=== PATIENT | female | born 1970 | race Caucasian/White ===

== ENCOUNTER 2016-12-24 13:01 | Inpatient (IN) | payer MEDICARE ==
[~2016-12-24] VITALS: Ht 160 cm; Wt 64.2 kg
[~2016-12-24 13:01] MED LIST: AMPYRA HOMEMEDPO; BISA10SU65 PR; ERTA1VIA IV; FAMO20TA7 PO; HYDR-3138 PO; LEVO112T2 PO; NAPR220C PO; POLY17PO5 PO; PRED10TA PO; PRED50TA PO; SENN1TAB7 PO; SULF1TAB24 PO; TECFIDERA HOMEMEDPO; [UNRECOGNIZED DRUG - REMARK]
[2016-12-24] MEDS ORDERED: SODIUM CHLORIDE 0.9% 1,000 ML IV ONE (13:42)
[2016-12-24] MEDS ORDERED: SODIUM CHLORIDE FLUSH 10ML SYR IVF ONE (14:00)
[2016-12-24 14:46] LABS: HEMOGLOBIN 13.4 g/dL (11.7-16.4)
[2016-12-24 14:51] LABS: BLOOD UREA NITROGEN 17 mg/dL (7-18)
[2016-12-24 15:34] LABS: DIFF TOTAL CELLS COUNTED 100 CELL DIFF
[2016-12-24 15:35] LABS: VERIFY COUNTS? YES
[2016-12-24 16:05] LABS: PATH.CAST-FLAG NOT PRESENT; SPERM-FLAG NOT PRESENT; SRC-FLAG NOT PRESENT; XTAL-FLAG NOT PRESENT; YLC-FLAG NOT PRESENT
[2016-12-24] MEDS ORDERED: LEVOFLOXACIN/PMX 750MG/150ML 150 ML ONE (16:24)
[2016-12-24] MEDS ORDERED: LEVOFLOXACIN/PMX 750MG/150ML 150 ML IVPB ONE (16:30)
[2016-12-24] MEDS ORDERED: IBUPROFEN 200 MG TABLET ONE (17:10)
[2016-12-24] MEDS ORDERED: IBUPROFEN 200 MG TABLET PO ONE (17:30)
[2016-12-24] MEDS ORDERED: SODIUM CHLORIDE 0.9% 1,000ML IVBOLUS ONE ×2 (17:30→19:00)
[2016-12-24] MEDS ORDERED: ACETAMINOPHEN 500 MG TABLET ONE (18:26)
[2016-12-24] MEDS ORDERED: ONDANSETRON 2MG/ML, 2ML ONE (18:43)
[2016-12-24] MEDS ORDERED: MORPHINE SULFATE 4 MG/ML, 1ML ONE (18:43)
[2016-12-24] MEDS ORDERED: ONDANSETRON 2MG/ML, 2ML IVPush ONE (19:00)
[2016-12-24] MEDS ORDERED: ACETAMINOPHEN 500 MG TABLET PO ONE (19:00)
[2016-12-24] MEDS ORDERED: MORPHINE SULFATE 4 MG/ML, 1ML IVPush PRN (19:00)
[2016-12-24] MEDS ORDERED: SODIUM CHLORIDE FLUSH 10ML SYR IVF PRN (19:30)
[2016-12-24] MEDS ORDERED: POLYETHYLENE GLYCOL 17 GM PACKET PO PRN (19:30)
[2016-12-24] MEDS ORDERED: BISACODYL 10 MG SUPP PR PRN (19:30)
[2016-12-24] MEDS ORDERED: MEROPENEM 1 GM in SODIUM CHLORIDE 0.9% 100 ML IV ONE (19:30)
[2016-12-24] MEDS: SODIUM CHLORIDE 0.9% 1,000 ML IV SCH (21:17)
[2016-12-24] MEDS ORDERED: OMNIPAQUE 350 MG/ML, 150 ML BOTTLE ONE (22:58)
[2016-12-24 23:43] VITALS: BP 107/57
[2016-12-25 00:45] VITALS: BP 100/65
[2016-12-25] MEDS: ACETAMINOPHEN 325 MG TABLET PO PRN ×3 (01:15→12:11)
[2016-12-25] MEDS: ENOXAPARIN 40 MG/0.4 ML SQ SCH ×2 (01:16→21:16)
[2016-12-25] MEDS: SENNA/DOCUSATE TABLET PO SCH ×3 (01:16→21:16)
[2016-12-25] MEDS: SODIUM CHLORIDE 0.9% 1,000 ML IV SCH ×2 (01:17→08:51)
[2016-12-25 06:17] LABS: HEMOGLOBIN 11.2 g/dL (11.7-16.4)
[2016-12-25 06:27] LABS: BLOOD UREA NITROGEN 8 mg/dL (7-18)
[2016-12-25] MEDS: MEROPENEM 1 GM in SODIUM CHLORIDE 0.9% 100 ML IV SCH ×3 (06:28→21:16)
[2016-12-25] MEDS: LEVOTHYROXINE 112 MCG TABLET PO SCH (06:28)
[2016-12-25 06:29] LABS: ASPARTATE AMINO TRANSFERASE 16 U/L (15-37)
[2016-12-25 06:56] VITALS: BP 90/57
[2016-12-25] MEDS: HYDROcodone/APAP 5/325 TABLET PO PRN ×2 (09:05→13:59)
[2016-12-25] MEDS: NS + 20MEQ KCL 1,000 ML IV SCH ×2 (11:14→21:16)
[2016-12-25 12:30] VITALS: BP 97/59
[2016-12-25] MEDS: MORPHINE SULFATE 4 MG/ML, 1ML IVPush PRN ×2 (17:13→21:29)
[2016-12-25] MEDS ORDERED: methylPREDNISolone SOD SUCC 125 MG/2 ML IVPush ONE (17:30)
[2016-12-25 19:46] VITALS: BP 116/73
[2016-12-26 01:58] VITALS: BP 104/68
[2016-12-26] MEDS: MORPHINE SULFATE 4 MG/ML, 1ML IVPush PRN (02:16)
[2016-12-26] MEDS: MEROPENEM 1 GM in SODIUM CHLORIDE 0.9% 100 ML IV SCH ×3 (04:22→20:17)
[2016-12-26] MEDS: LEVOTHYROXINE 112 MCG TABLET PO SCH (05:19)
[2016-12-26 06:28] LABS: HEMOGLOBIN 11.9 g/dL (11.7-16.4)
[2016-12-26 06:50] LABS: BLOOD UREA NITROGEN 8 mg/dL (7-18)
[2016-12-26] MEDS: HYDROcodone/APAP 5/325 TABLET PO PRN ×2 (08:31→16:42)
[2016-12-26] MEDS: SENNA/DOCUSATE TABLET PO SCH ×2 (08:31→20:17)
[2016-12-26 08:39] VITALS: BP 116/72
[2016-12-26 13:54] VITALS: BP 122/76
[2016-12-26 19:18] VITALS: BP 104/66
[2016-12-26] MEDS: PICC FLUSH PROTOCOL XX SCH (20:18)
[2016-12-26] MEDS: ENOXAPARIN 40 MG/0.4 ML SQ SCH (20:18)
[2016-12-27 01:12] VITALS: BP 103/68
[2016-12-27] MEDS: MEROPENEM 1 GM in SODIUM CHLORIDE 0.9% 100 ML IV SCH ×3 (04:14→20:32)
[2016-12-27] MEDS: HYDROcodone/APAP 5/325 TABLET PO PRN ×4 (04:20→20:30)
[2016-12-27] MEDS: LEVOTHYROXINE 112 MCG TABLET PO SCH (05:17)
[2016-12-27 07:44] VITALS: BP 106/68
[2016-12-27] MEDS: SENNA/DOCUSATE TABLET PO SCH ×2 (10:07→20:30)
[2016-12-27] MEDS: PICC FLUSH PROTOCOL XX SCH ×2 (10:08→20:32)
[2016-12-27] MEDS: ONDANSETRON 2MG/ML, 2ML IVP PRN (10:15)
[2016-12-27 14:15] VITALS: BP 109/70
[2016-12-27 18:57] VITALS: BP 107/70
[2016-12-27] MEDS: ENOXAPARIN 40 MG/0.4 ML SQ SCH (20:36)
[2016-12-28 01:21] VITALS: BP 106/68
[2016-12-28] MEDS: MEROPENEM 1 GM in SODIUM CHLORIDE 0.9% 100 ML IV SCH (04:51)
[2016-12-28] MEDS: LEVOTHYROXINE 112 MCG TABLET PO SCH (04:52)
[2016-12-28] MEDS: HYDROcodone/APAP 5/325 TABLET PO PRN ×2 (04:52→21:47)
[2016-12-28 06:52] VITALS: BP 105/67
[2016-12-28] MEDS: SENNA/DOCUSATE TABLET PO SCH ×2 (08:09→21:47)
[2016-12-28] MEDS: PICC FLUSH PROTOCOL XX SCH ×2 (08:09→21:47)
[2016-12-28] MEDS: ONDANSETRON 2MG/ML, 2ML IVP PRN (10:57)
[2016-12-28] MEDS: ERTAPENEM 1 GM in SODIUM CHLORIDE 0.9% 50 ML IV SCH (10:57)
[2016-12-28 13:08] VITALS: BP 129/87
[2016-12-28 19:45] VITALS: BP 122/82
[2016-12-28] MEDS: ENOXAPARIN 40 MG/0.4 ML SQ SCH (21:47)
[2016-12-29 02:41] VITALS: BP 145/75
[2016-12-29] MEDS: HYDROcodone/APAP 5/325 TABLET PO PRN ×2 (05:52→19:31)
[2016-12-29] MEDS: LEVOTHYROXINE 112 MCG TABLET PO SCH (05:53)
[2016-12-29 07:08] VITALS: BP 120/79
[2016-12-29] MEDS: PICC FLUSH PROTOCOL XX SCH ×2 (09:00→21:00)
[2016-12-29] MEDS: SENNA/DOCUSATE TABLET PO SCH ×2 (10:20→21:23)
[2016-12-29] MEDS: ERTAPENEM 1 GM in SODIUM CHLORIDE 0.9% 50 ML IV SCH (13:20)
[2016-12-29] MEDS: ONDANSETRON 2MG/ML, 2ML IVP PRN (13:32)
[2016-12-29 14:42] VITALS: BP 118/76
[2016-12-29 18:50] VITALS: BP 102/67
[2016-12-29] MEDS: ENOXAPARIN 40 MG/0.4 ML SQ SCH (21:24)
[2016-12-30 01:28] VITALS: BP 103/67
[2016-12-30] MEDS: LEVOTHYROXINE 112 MCG TABLET PO SCH (04:32)
[2016-12-30 08:27] VITALS: BP 106/71
[2016-12-30] MEDS: HYDROcodone/APAP 5/325 TABLET PO PRN (08:55)
[2016-12-30] MEDS: SENNA/DOCUSATE TABLET PO SCH ×2 (08:55→20:52)
[2016-12-30] MEDS: ONDANSETRON 2MG/ML, 2ML IVP PRN (08:59)
[2016-12-30] MEDS: PICC FLUSH PROTOCOL XX SCH ×2 (09:00→20:53)
[2016-12-30] MEDS: ERTAPENEM 1 GM in SODIUM CHLORIDE 0.9% 50 ML IV SCH (11:57)
[2016-12-30] MEDS: PHENAZOPYRIDINE 200 MG TABLET PO SCH ×2 (16:00→20:52)
[2016-12-30 16:32] VITALS: BP 121/82
[2016-12-30 19:51] VITALS: BP 111/75
[2016-12-30] MEDS: ENOXAPARIN 40 MG/0.4 ML SQ SCH (20:53)
[2016-12-31 02:28] VITALS: BP 111/74
[2016-12-31] MEDS: LEVOTHYROXINE 112 MCG TABLET PO SCH (04:32)
[2016-12-31] MEDS: HYDROcodone/APAP 5/325 TABLET PO PRN ×3 (04:33→21:07)
[2016-12-31 04:49] LABS: HEMOGLOBIN 11.8 g/dL (11.7-16.4)
[2016-12-31 05:04] LABS: ASPARTATE AMINO TRANSFERASE 40 U/L (15-37); BLOOD UREA NITROGEN 9 mg/dL (7-18); C-REACTIVE PROTEIN, QUANT 0.52 mg/dL (0.02-0.49)
[2016-12-31 07:44] VITALS: BP 107/73
[2016-12-31] MEDS: SENNA/DOCUSATE TABLET PO SCH ×2 (10:34→21:07)
[2016-12-31] MEDS: PHENAZOPYRIDINE 200 MG TABLET PO SCH ×3 (10:34→21:07)
[2016-12-31] MEDS: PICC FLUSH PROTOCOL XX SCH ×2 (10:39→21:00)
[2016-12-31] MEDS: ERTAPENEM 1 GM in SODIUM CHLORIDE 0.9% 50 ML IV SCH (10:49)
[2016-12-31 16:09] VITALS: BP 116/71
[2016-12-31] MEDS: ENOXAPARIN 40 MG/0.4 ML SQ SCH (19:30)
[2016-12-31 20:04] VITALS: BP 117/75
[2017-01-01 02:26] VITALS: BP 112/75
[2017-01-01] MEDS: LEVOTHYROXINE 112 MCG TABLET PO SCH (04:58)
[2017-01-01 08:03] VITALS: BP 112/70
[2017-01-01] MEDS: PHENAZOPYRIDINE 200 MG TABLET PO SCH (09:43)
[2017-01-01] MEDS: SENNA/DOCUSATE TABLET PO SCH (09:43)
[2017-01-01] MEDS: PICC FLUSH PROTOCOL XX SCH (09:44)
[2017-01-01] MEDS: ERTAPENEM 1 GM in SODIUM CHLORIDE 0.9% 50 ML IV SCH (12:39)
[2017-01-01] MEDS: HYDROcodone/APAP 5/325 TABLET PO PRN (12:39)
[2017-01-01 13:56] VITALS: BP 136/80
== END 2017-01-01 15:43 | DRG 872 ==
LOC: ED 16:54 → SUATTDRO 18:24 → EDIP 19:04 → 5SO 23:34 → 3NE 01-01 11:50
PROVIDERS: ADMIT Internal Medicine; ATTEND Family Medicine
PROC: 0T9B70Z Drainage of Bladder with Drainage Device, Via Natural or Artificial Opening (ICD-10-PCS; 2016-12-24)
PROC: 02HV33Z Insertion of Infusion Device into Superior Vena Cava, Percutaneous Approach (ICD-10-PCS; principal; 2016-12-26)
PROC: B548ZZA Ultrasonography of Superior Vena Cava, Guidance (ICD-10-PCS; 2016-12-26)
DX: A41.9 Sepsis, unspecified organism (principal); K59.2 Neurogenic bowel, not elsewhere classified; N12 Tubulo-interstitial nephritis, not specified as acute or chronic; N31.9 Neuromuscular dysfunction of bladder, unspecified; B96.20 Unspecified Escherichia coli [E. coli] as the cause of diseases classified elsewhere; G35 Multiple sclerosis; E03.9 Hypothyroidism, unspecified; Z16.12 Extended spectrum beta lactamase (ESBL) resistance; Z79.899 Other long term (current) drug therapy; Z80.0 Family history of malignant neoplasm of digestive organs; Z87.440 Personal history of urinary (tract) infections; Z91.19 Patient's noncompliance with other medical treatment and regimen; Z90.49 Acquired absence of other specified parts of digestive tract; Z90.89 Acquired absence of other organs; Z90.710 Acquired absence of both cervix and uterus
CPT/HCPCS: 36415; 36569; 70450; 71010; 74178; 76937; 77001; 80048; 80053; 81001; 82040; 83605; 83735; 84145; 85025; 85651; 86140; 87040; 87077; 87086; 87186; 93005; 96361; 96365; 96366; 96367; 96375; J1335; J1650; J1956; J2185; J2405; J3480; Q9967; C1751; J2930; J7030

== ENCOUNTER 2017-02-19 13:32 | Inpatient (IN) | payer MEDICARE ==
[~2017-02-19] VITALS: Ht 160 cm; Wt 68.7 kg
[2017-02-19] MEDS ORDERED: SODIUM CHLORIDE 0.9% 1,000 ML IV ONE ×2 (13:47→14:22)
[2017-02-19] MEDS ORDERED: ONDANSETRON 2MG/ML, 2ML IVPush ONE ×2 (14:00→14:30)
[2017-02-19] MEDS ORDERED: ACETAMINOPHEN 325 MG TABLET PO ONE ×2 (14:00→14:30)
[2017-02-19] MEDS ORDERED: SODIUM CHLORIDE FLUSH 10ML SYR IVF ONE (14:00)
[2017-02-19] MEDS ORDERED: SODIUM CHLORIDE 0.9% 1,000ML IVBOLUS ONE ×3 (14:00→15:00)
[2017-02-19] MEDS ORDERED: ACETAMINOPHEN 325 MG TABLET ONE ×2 (14:02→18:25)
[2017-02-19] MEDS ORDERED: ONDANSETRON 2MG/ML, 2ML ONE (14:03)
[2017-02-19 14:26] LABS: ASPARTATE AMINO TRANSFERASE 36 U/L (15-37); BLOOD UREA NITROGEN 16 mg/dL (7-18)
[2017-02-19] MEDS ORDERED: FAMOTIDINE 20 MG/2 ML IVPush ONE (14:30)
[2017-02-19] MEDS ORDERED: FAMOTIDINE 20 MG/2 ML ONE (15:08)
[2017-02-19] MEDS ORDERED: LEVOFLOXACIN/PMX 750MG/150ML 150 ML IVPB ONE (16:30)
[2017-02-19] MEDS ORDERED: IBUPROFEN 200 MG TABLET PO ONE (16:30)
[2017-02-19] MEDS ORDERED: VANCOMYCIN PER PHARMACY MC ONE (16:30)
[2017-02-19] MEDS ORDERED: LEVOFLOXACIN/PMX 750MG/150ML 150 ML ONE (16:46)
[2017-02-19] MEDS ORDERED: VANCOMYCIN 1,400 MG in SODIUM CHLORIDE 0.9% 250 ML IV ONE (17:00)
[2017-02-19] MEDS ORDERED: LORazepam 2 MG/ML, 1ML IVPush ONE (17:00)
[2017-02-19] MEDS ORDERED: METOPROLOL 1 MG/ML, 5ML ONE (17:01)
[2017-02-19] MEDS ORDERED: IBUPROFEN 200 MG TABLET ONE (17:20)
[2017-02-19] MEDS ORDERED: LORazepam 2 MG/ML, 1ML ONE (17:20)
[2017-02-19] MEDS ORDERED: ZOLPIDEM 5MG TABLET PO PRN (17:30)
[2017-02-19] MEDS ORDERED: ONDANSETRON 2MG/ML, 2ML IVPush PRN (17:30)
[2017-02-19] MEDS ORDERED: morphine SULFATE 10 MG/ML, 1ML IVPush PRN (17:30)
[2017-02-19] MEDS ORDERED: POLYETHYLENE GLYCOL 17 GM PACKET PO PRN (17:30)
[2017-02-19] MEDS ORDERED: METOPROLOL 1 MG/ML, 5ML IVPush ONE (17:30)
[2017-02-19] MEDS ORDERED: LORazepam 2 MG/ML, 1ML IVPush PRN (17:30)
[2017-02-19] MEDS ORDERED: DIAZEPAM 5 MG/ML, 2ML IV PRN (17:30)
[2017-02-19] MEDS ORDERED: BISACODYL 10 MG SUPP PR PRN (17:30)
[2017-02-19] MEDS ORDERED: IBUPROFEN 600 MG TABLET PO PRN (17:30)
[2017-02-19] MEDS ORDERED: ACETAMINOPHEN 325 MG TABLET PO PRN (17:30)
[2017-02-19] MEDS ORDERED: ENOXAPARIN 40 MG/0.4 ML SQ SCH (17:30)
[2017-02-19] MEDS: SODIUM CHLORIDE 0.9% 1,000 ML IV SCH (17:49)
[2017-02-19 20:00] VITALS: BP 101/60
[2017-02-19] MEDS: MEROPENEM 1 GM in SODIUM CHLORIDE 0.9% 50 ML IV SCH (22:42)
[2017-02-20] MEDS: SODIUM CHLORIDE 0.9% 1,000 ML IV SCH ×2 (00:33→04:24)
[2017-02-20 02:53] VITALS: BP 87/47
[2017-02-20 03:06] VITALS: BP 103/48
[2017-02-20] MEDS ORDERED: SODIUM CHLORIDE 0.9%, 500ML IVBOLUS ONE (03:30)
[2017-02-20 04:42] VITALS: BP 90/57
[2017-02-20] MEDS: LEVOTHYROXINE 112 MCG TABLET PO SCH (05:50)
[2017-02-20 06:07] LABS: BLOOD UREA NITROGEN 11 mg/dL (7-18)
[2017-02-20 07:40] VITALS: BP 92/59
[2017-02-20] MEDS: MEROPENEM 1 GM in SODIUM CHLORIDE 0.9% 50 ML IV SCH ×2 (08:32→17:31)
[2017-02-20] MEDS ORDERED: OMNIPAQUE 350 MG/ML, 100ML BOTTLE ONE (10:05)
[2017-02-20 10:32] LABS: HIT LOT CART23835/KIT23844
[2017-02-20 11:33] LABS: PROTIME 12.4 Seconds (9.6-11.5)
[2017-02-20] MEDS: POTASSIUM CHLORIDE 20 MEQ in SODIUM CHLORIDE 0.45% 1,000 ML IV SCH ×2 (11:56→17:31)
[2017-02-20 12:22] LABS: HIT OBC PASS; HIT RESULT NEGATIVE (NEGATIVE)
[2017-02-20 13:59] VITALS: BP 119/76
[2017-02-20] MEDS ORDERED: POTASSIUM CHLORIDE 20 MEQ in SODIUM CHLORIDE 0.9% 1,000 ML IV SCH (17:08)
[2017-02-20 20:00] VITALS: BP 122/74
[2017-02-21] MEDS: MEROPENEM 1 GM in SODIUM CHLORIDE 0.9% 50 ML IV SCH ×3 (00:21→16:40)
[2017-02-21] MEDS: POTASSIUM CHLORIDE 20 MEQ in SODIUM CHLORIDE 0.45% 1,000 ML IV SCH ×4 (00:21→22:14)
[2017-02-21 03:41] VITALS: BP 94/59
[2017-02-21] MEDS: LEVOTHYROXINE 112 MCG TABLET PO SCH (04:59)
[2017-02-21 06:35] LABS: BLOOD UREA NITROGEN 5 mg/dL (7-18)
[2017-02-21 07:59] VITALS: BP 101/67
[2017-02-21] MEDS ORDERED: POTASSIUM CHLORIDE 20 MEQ TAB.ER.PRT PO ONE (11:00)
[2017-02-21 13:59] VITALS: BP 111/69
[2017-02-21] MEDS: DOCUSATE 100 MG CAPSULE PO PRN (16:36)
[2017-02-21 20:00] VITALS: BP 132/81
[2017-02-22] MEDS: MEROPENEM 1 GM in SODIUM CHLORIDE 0.9% 50 ML IV SCH ×3 (00:15→16:16)
[2017-02-22 02:00] VITALS: BP 100/68
[2017-02-22] MEDS: POTASSIUM CHLORIDE 20 MEQ in SODIUM CHLORIDE 0.45% 1,000 ML IV SCH ×2 (02:01→08:26)
[2017-02-22 05:37] LABS: BLOOD UREA NITROGEN 5 mg/dL (7-18)
[2017-02-22] MEDS: LEVOTHYROXINE 112 MCG TABLET PO SCH (05:51)
[2017-02-22 07:22] VITALS: BP 115/67
[2017-02-22] MEDS: DOCUSATE 100 MG CAPSULE PO PRN (08:26)
[2017-02-22 16:10] VITALS: BP 116/73
[2017-02-22 20:00] VITALS: BP 124/72
[2017-02-23] MEDS: MEROPENEM 1 GM in SODIUM CHLORIDE 0.9% 50 ML IV SCH ×3 (00:18→18:21)
[2017-02-23 02:00] VITALS: BP 104/64
[2017-02-23 05:43] LABS: BLOOD UREA NITROGEN 8 mg/dL (7-18)
[2017-02-23] MEDS: LEVOTHYROXINE 112 MCG TABLET PO SCH (05:53)
[2017-02-23 08:48] VITALS: BP 122/81
[2017-02-23 12:22] VITALS: BP 121/79
[2017-02-23 20:00] VITALS: BP 128/76
[2017-02-24 02:00] VITALS: BP 117/72
[2017-02-24] MEDS: MEROPENEM 1 GM in SODIUM CHLORIDE 0.9% 50 ML IV SCH ×2 (03:49→11:00)
[2017-02-24] MEDS: LEVOTHYROXINE 112 MCG TABLET PO SCH (05:44)
[2017-02-24 07:25] VITALS: BP 112/72
[2017-02-24] MEDS: CHOLECALCIFEROL 400 UNITS TABLET PO SCH (08:41)
[2017-02-24] MEDS ORDERED: CEFTRIAXONE 2 GM in SODIUM CHLORIDE 0.9% 50 ML IV SCH (12:00)
[2017-02-24 12:10] VITALS: BP 113/73
[2017-02-24 19:10] VITALS: BP 112/71
[2017-02-25 00:42] VITALS: BP 112/70
[2017-02-25 05:06] LABS: SRA, LOW DOSE HEPARIN 2 % (0-20)
[2017-02-25] MEDS: LEVOTHYROXINE 112 MCG TABLET PO SCH (05:35)
[2017-02-25 08:24] VITALS: BP 107/71
[2017-02-25] MEDS: CHOLECALCIFEROL 400 UNITS TABLET PO SCH (09:30)
[2017-02-25] MEDS ORDERED: CEFTRIAXONE PMX 2GM/50ML 50 ML IV SCH (12:00)
[2017-02-25 14:00] VITALS: BP 107/71
[2017-02-25 16:56] VITALS: BP 107/71
== END 2017-02-25 16:45 | disposition home or self-care (01) | DRG 872 ==
LOC: ED 16:30 → EDIP 16:31 → SUATTDRO 16:39 → ED 16:43 → 4WST 18:58
PROVIDERS: ADMIT Hospitalist; ATTEND Hospitalist
PROC: 02HV33Z Insertion of Infusion Device into Superior Vena Cava, Percutaneous Approach (ICD-10-PCS; principal; 2017-02-23)
PROC: B5181ZA Fluoroscopy of Superior Vena Cava using Low Osmolar Contrast, Guidance (ICD-10-PCS; 2017-02-23)
DX: A41.9 Sepsis, unspecified organism (principal); N12 Tubulo-interstitial nephritis, not specified as acute or chronic; E03.9 Hypothyroidism, unspecified; B96.20 Unspecified Escherichia coli [E. coli] as the cause of diseases classified elsewhere; Z16.12 Extended spectrum beta lactamase (ESBL) resistance
CPT/HCPCS: 36415; 36569; 71010; 74177; 76937; 77001; 80048; 80053; 81001; 82306; 82542; 83605; 83735; 84145; 84443; 85025; 85049; 85379; 85384; 85610; 85730; 86022; 87040; 87077; 87086; 87186; 93005; 96361; 96365; 96375; J0696; J1650; J1956; J2185; J2405; J3370; J3480; Q9967; C1751; J2060; J7030; J7040; J7050; S0028

== ENCOUNTER 2017-10-07 19:44 | Emergency (ER) | payer MEDICARE ==
[~2017-10-07] VITALS: Ht 157.5 cm; Wt 62.0 kg
[~2017-10-07 19:44] MED LIST changes: -HYDR-3138 PO; +HYDR-3237 PO
[2017-10-07] MEDS ORDERED: ACETAMINOPHEN 325 MG TABLET ONE (20:06)
[2017-10-07 20:30] LABS: HEMATOCRIT 37.1 % (34.6-47.8); HEMOGLOBIN 12.9 g/dL (11.7-16.4); WHITE BLOOD COUNT 10.1 x10^3/uL (3.4-10)
[2017-10-07] MEDS ORDERED: SODIUM CHLORIDE FLUSH 10ML SYR IVF ONE (20:30)
[2017-10-07] MEDS ORDERED: SODIUM CHLORIDE 0.9% 1,000ML IVBOLUS ONE (20:30)
[2017-10-07] MEDS ORDERED: ACETAMINOPHEN 325 MG TABLET PO ONE (20:30)
[2017-10-07 20:32] LABS: RAPID INFLUENZA A Negative (Negative); RAPID INFLUENZA B Negative (Negative)
[2017-10-07 20:40] LABS: ASPARTATE AMINO TRANSFERASE 22 U/L (15-37); BLOOD UREA NITROGEN 8 mg/dL (7-18)
[2017-10-07 21:41] VITALS: BP 126/70
[2017-10-07 21:45] LABS: PATH.CAST-FLAG NOT PRESENT; SPERM-FLAG NOT PRESENT; SRC-FLAG NOT PRESENT; XTAL-FLAG NOT PRESENT; YLC-FLAG NOT PRESENT
[2017-10-07] MEDS ORDERED: IBUPROFEN 200 MG TABLET PO ONE (22:00)
[2017-10-07] MEDS ORDERED: IBUPROFEN 200 MG TABLET ONE (22:02)
== END 2017-10-07 22:15 | disposition home or self-care (01) ==
LOC: ED 22:09
DX: J00 Acute nasopharyngitis [common cold] (principal); G35 Multiple sclerosis
CPT/HCPCS: 36415; 71010; 80053; 81001; 83605; 84145; 85025; 87040; 87400; 93005; 96360; 96361; 99285; J7030

== ENCOUNTER 2019-11-07 22:56 | Emergency (ER) | payer MEDICARE, OTHER ==
[~2019-11-07] VITALS: Ht 160 cm; Wt 73.0 kg
[~2019-11-07 22:56] MED LIST changes: -NAPR220C PO; +NAPR220C62 PO; +SENN-177 PO; -SENN1TAB7 PO
[2019-11-07 23:38] LABS: BASOPHILS # (AUTO) 0.03 x10^3/uL (0-0.1); BASOPHILS % (AUTO) 0 % (0-1); EOSINOPHILS # (AUTO) 0.08 x10^3/uL (0-0.4); EOSINOPHILS % (AUTO) 1 % (1-7); LYMPHOCYTES # (AUTO) 2.46 x10^3/uL (1-3.4); LYMPHOCYTES % (AUTO) 19 % (22-44); MD NO; MEAN CORPUSCULAR HEMOGLOBIN 31.5 pg (27.0-34.8); MEAN CORPUSCULAR HGB CONC 33.6 g/dL (32.4-35.8); MEAN CORPUSCULAR VOLUME 93.7 fL (80-100); MEAN PLATELET VOLUME 10.5 fL (7.4-10.4); MONOCYTES # (AUTO) 1.12 x10^3/uL (0.2-0.8); MONOCYTES % (AUTO) 9 % (2-9); NEUTROPHILS # (AUTO) 9.18 x10^3/uL (1.8-6.8); NEUTROPHILS % (AUTO) 71 % (42-75); PLATELET COUNT 201 x10^3/uL (130-400); RED BLOOD COUNT 4.03 x10^6/uL (3.82-5.3); RED CELL DISTRIBUTION WIDTH 14.3 % (9.6-15.2)
[2019-11-07 23:47] LABS: CHLORIDE 105 mmol/L (98-107)
--- NOTE | 2019-11-07 23:47 | NUR ---
pt straight cath'ed for urine and tolerated procedure well.
--- NOTE | 2019-11-07 23:48 | NUR ---
pt family states she had a fever of 104 today and she took motrin at 2100 this evening.
[2019-11-07 23:51] LABS: ALANINE AMINOTRANSFERASE 73 U/L (12-78); ALBUMIN 4.4 g/dL (3.4-5.0); ANION GAP 10 mmol/L (5-15); CALCIUM 9.1 mg/dL (8.5-10.1); CREATININE 0.59 mg/dL (0.55-1.02)
--- NOTE | 2019-11-07 23:52 | NUR ---
blood cultures drawn x2
[2019-11-07 23:53] LABS: MICROSCOPIC AUTO
[2019-11-07 23:54] LABS: ALKALINE PHOSPHATASE 106 U/L (45-117); BILIRUBIN,TOTAL 0.4 mg/dL (0.2-1.0); TOTAL PROTEIN 8.1 g/dL (6.4-8.2)
[2019-11-07 23:55] LABS: TROPONIN I < 0.015 ng/mL (0.000-0.045)
[2019-11-08 00:04] LABS: CULTURE INDICATED? YES
[2019-11-08] MEDS ORDERED: CIPROFLOXACIN 500 MG TABLET PO ONE (01:00)
[2019-11-08] MEDS ORDERED: CIPROFLOXACIN 500 MG TABLET ONE (01:02)
[2019-11-08 01:06] VITALS: BP 115/59
== END 2019-11-08 01:20 | disposition home or self-care (01) ==
LOC: ED 23:52
DX: N30.01 Acute cystitis with hematuria (principal); M79.10 Myalgia, unspecified site; R50.81 Fever presenting with conditions classified elsewhere; E03.9 Hypothyroidism, unspecified; Z98.890 Other specified postprocedural states
CPT/HCPCS: 36415; 71045; 80053; 81001; 83605; 84145; 84484; 85025; 87040; 87077; 87086; 87186; 93005; 99283; 99284

== ENCOUNTER 2020-07-31 09:57 | Emergency (ER) | payer OTHER ==
[~2020-07-31] VITALS: Ht 160 cm; Wt 76.4 kg
[~2020-07-31 09:57] MED LIST changes: +CEFD300C37 PO; +DALF10TA PO; +DIME240C PO; +LEVO112T4 PO; +PHEN20SP MM; +SENN-193 PO
--- NOTE | 2020-07-31 10:50 | NUR ---
ATTEMPTED IV PLACEMENT X2 WITHOUT SUCCESS. WILL FIND ANOTHER STAFF MEMBER TO ASSIST. BLOOD CULTURES AND LABS DRAWN BY LAB. PT PLACED ON VITALS MONITORS.
[2020-07-31] MEDS ORDERED: SODIUM CHLORIDE 0.9% 1,000 ML IV ONE (11:00)
[2020-07-31] MEDS ORDERED: SODIUM CHLORIDE FLUSH 10ML SYR IVF ONE (11:00)
[2020-07-31 11:02] LABS: BASOPHILS % (AUTO) 0 % (0-1); EOSINOPHILS % (AUTO) 1 % (1-7); LYMPHOCYTES % (AUTO) 21 % (22-44); MEAN CORPUSCULAR HEMOGLOBIN 30.3 pg (27.0-34.8); MEAN CORPUSCULAR HGB CONC 32.8 g/dL (32.4-35.8); MEAN PLATELET VOLUME 10.4 fL (7.4-10.4); MONOCYTES % (AUTO) 8 % (2-9); NEUTROPHILS % (AUTO) 71 % (42-75); PLATELET COUNT 176 x10^3/uL (130-400); RED BLOOD COUNT 4.44 x10^6/uL (3.82-5.3); RED CELL DISTRIBUTION WIDTH 13.8 % (9.6-15.2)
[2020-07-31 11:07] LABS: MD NO
[2020-07-31 11:12] LABS: ALBUMIN 4.5 g/dL (3.4-5.0); ANION GAP 7 mmol/L (5-15); CALCIUM 9.4 mg/dL (8.5-10.1); CHLORIDE 109 mmol/L (98-107)
[2020-07-31 11:14] LABS: CREATININE 0.51 mg/dL (0.55-1.02)
--- NOTE | 2020-07-31 11:16 | NUR ---
IV STARTED, ORDERED FLUIDS INFUSING. STRAIGHT CATH DONE, PT TOLERATED WELL. URINE WALKED TO LAB.
[2020-07-31 11:22] LABS: MICROSCOPIC AUTO
[2020-07-31] MEDS ORDERED: CEFTRIAXONE PMX 1GM/50ML 50 ML IVPB ONE (12:00)
[2020-07-31] MEDS ORDERED: CEFTRIAXONE PMX 1GM/50ML 50 ML ONE (12:07)
[2020-07-31 12:55] VITALS: BP 117/81
== END 2020-07-31 12:58 | disposition home or self-care (01) ==
LOC: ED 10:55
DX: N30.00 Acute cystitis without hematuria (principal); R42 Dizziness and giddiness; Z90.89 Acquired absence of other organs; R00.0 Tachycardia, unspecified
CPT/HCPCS: 36415; 51701; 80048; 81001; 82040; 83605; 85025; 87040; 87086; 93005; 96365; 99284; J0696; J7030; P9612

== ENCOUNTER 2020-08-23 18:49 | Inpatient (IN) | payer OTHER ==
[~2020-08-23] VITALS: Ht 160 cm; Wt 82.9 kg
[2020-08-23 19:23] LABS: MEAN CORPUSCULAR HEMOGLOBIN 30.4 pg (27.0-34.8); MEAN CORPUSCULAR HGB CONC 32.7 g/dL (32.4-35.8); MEAN PLATELET VOLUME 10.4 fL (7.4-10.4); PLATELET COUNT 285 x10^3/uL (130-400); RED BLOOD COUNT 4.36 x10^6/uL (3.82-5.3); RED CELL DISTRIBUTION WIDTH 14.4 % (9.6-15.2)
[2020-08-23 19:31] LABS: ANION GAP 4 mmol/L (5-15); CALCIUM 9.8 mg/dL (8.5-10.1); CHLORIDE 107 mmol/L (98-107); CREATININE 0.53 mg/dL (0.55-1.02)
[2020-08-23 19:49] LABS: MD YES
[2020-08-23 21:01] LABS: BAND#(MANUAL) 0.28 x10^3/uL; BANDS%(MANUAL) 2 % (0-7); LYMPH#(MANUAL) 4.69 x10^3/uL (1-3.4); LYMPHS% (MANUAL) 33 % (22-44); MONOS#(MANUAL) 1.56 x10^3/uL (0.3-2.7); MONOS% (MANUAL) 11 % (2-9); MYELOCYTES# (MANUAL) 0.14 x10^3/uL (0-0); MYELOCYTES% (MANUAL) 1 % (0-0); REACTIVE LYMPHS # (MANUAL) 0.43 x10^3/uL (0-0); REACTIVE LYMPHS % (MANUAL) 3 % (0-0); SEGS% (MANUAL) 50 % (42-75)
[2020-08-23 21:04] LABS: <PLATELET ESTIMATE> ADEQUATE; <PLT MORPHOLOGY> NORMAL PLT MORPH; ANISOCYTOSIS 1+; POLYCHROMASIA 1+
--- NOTE | 2020-08-23 22:24 | NUR ---
PT IN GOWN IN [facility] WITH SISTER AT . PT ATTACHED TO VS MONITORS AND EDUCATED ON ER PROCESS AND POC. PT VERBALIZES UNDERSTANDING. PT HAS CALL LIGHT WITHIN REACH AND DENIES ANY OTHER NEEDS AT THIS TIME.
[2020-08-23] MEDS ORDERED: SODIUM CHLORIDE 0.9% 1,000ML IVBOLUS ONE (22:30)
[2020-08-23] MEDS ORDERED: KETOROLAC 30 MG/1 ML IVPush ONE (22:30)
[2020-08-23] MEDS ORDERED: MORPHINE SULFATE 4 MG/ML, 1ML IVPush ONE (22:30)
[2020-08-23] MEDS ORDERED: PIPERACILLIN/TAZO/PMX 3.375GM 50 ML IV ONE (22:30)
--- NOTE | 2020-08-23 22:51 | NUR ---
PIV ACCESS ESTABLISHED. LABS PLUS BC X 1 DRAWN AT THIS TIME.
[2020-08-23] MEDS ORDERED: PIPERACILLIN/TAZO/PMX 3.375GM 50 ML ONE (23:16)
[2020-08-23] MEDS ORDERED: KETOROLAC 30 MG/1 ML ONE (23:16)
[2020-08-23] MEDS ORDERED: MORPHINE SULFATE 4 MG/ML, 1ML ONE (23:18)
--- NOTE | 2020-08-23 23:25 | NUR ---
PT MEDICATED PER MAR AT THIS TIME. PT ATTACHED TO VS MONITORS. VSS AT THIS TIME. PT HAS CALL LIGHT WITHIN REACH AND DENIES ANY OTHER NEEDS PERTAINING TO THIS VISIT.
[2020-08-24] MEDS ORDERED: SODIUM CHLORIDE 0.9% 1,000 ML IV SCH
[2020-08-24] MEDS ORDERED: ONDANSETRON 2MG/ML, 2ML IVPush PRN
[2020-08-24] MEDS ORDERED: LABETALOL 5MG/ML, 20ML IVPush PRN
[2020-08-24] MEDS ORDERED: ACETAMINOPHEN 325 MG TABLET PO PRN
[2020-08-24] MEDS ORDERED: DOCUSATE 100 MG CAPSULE PO PRN
--- NOTE | 2020-08-24 00:50 | NUR ---
REPORT OF PT TO RN [place]. ALL QUESTIONS ANSWERED. PT AND FAMILY EDUCATED ON ROOM ASSIGNMENT AND VERBALIZE UNDERSTANDING. TECH PAGED FOR TRANSPORT OF PT TO FLOOR AT THIS TIME.
[2020-08-24 02:00] VITALS: BP 134/80
[2020-08-24] MEDS ORDERED: HEPARIN 5,000 UNITS/ML, 1ML ONE (02:04)
[2020-08-24] MEDS: HEPARIN 5,000 UNITS/ML, 1ML SQ SCH ×2 (02:08→09:41)
[2020-08-24 06:53] LABS: MEAN CORPUSCULAR HEMOGLOBIN 30.5 pg (27.0-34.8); MEAN CORPUSCULAR HGB CONC 32.6 g/dL (32.4-35.8); MEAN PLATELET VOLUME 9.9 fL (7.4-10.4); PLATELET COUNT 212 x10^3/uL (130-400); RED BLOOD COUNT 3.69 x10^6/uL (3.82-5.3); RED CELL DISTRIBUTION WIDTH 14.4 % (9.6-15.2)
[2020-08-24 07:07] LABS: CHLORIDE 111 mmol/L (98-107)
[2020-08-24 07:16] LABS: ANION GAP 5 mmol/L (5-15); CALCIUM 8.3 mg/dL (8.5-10.1); CREATININE 0.44 mg/dL (0.55-1.02)
[2020-08-24] MEDS: LEVOTHYROXINE 112 MCG TABLET PO SCH (07:29)
[2020-08-24] MEDS: PIPERACILLIN/TAZO/PMX 3.375GM 50 ML IV SCH ×4 (07:29→23:58)
[2020-08-24 08:18] LABS: MD YES
[2020-08-24 08:19] LABS: <PLATELET ESTIMATE> ADEQUATE; <PLT MORPHOLOGY> NORMAL PLT MORPH; EOS#(MANUAL) 0.27 x10^3/uL (0.0-0.4); EOS% (MANUAL) 2 % (1-7); LYMPH#(MANUAL) 4.46 x10^3/uL (1-3.4); LYMPHS% (MANUAL) 33 % (22-44); METAMYELOCYTES# (MANUAL) 0.27 x10^3/uL (0-0); METAMYELOCYTES% (MANUAL) 2 % (0-1); MONOS#(MANUAL) 0.68 x10^3/uL (0.3-2.7); MONOS% (MANUAL) 5 % (2-9); MYELOCYTES# (MANUAL) 0.14 x10^3/uL (0-0); MYELOCYTES% (MANUAL) 1 % (0-0); SEGS% (MANUAL) 57 % (42-75)
[2020-08-24 08:20] LABS: <RBC MORPHOLOGY> NORMAL
[2020-08-24] MEDS: LACTULOSE 10 GM/15 ML UDC PO SCH ×2 (09:41→20:47)
[2020-08-24] MEDS: HYDROcodone/APAP 5/325 TABLET PO PRN ×4 (09:41→22:36)
[2020-08-24 10:02] VITALS: BP 106/66
[2020-08-24 15:54] VITALS: BP 106/68
[2020-08-24 19:58] VITALS: BP 108/68
[2020-08-25 00:02] VITALS: BP 105/69
[2020-08-25] MEDS: HYDROcodone/APAP 5/325 TABLET PO PRN ×4 (02:56→22:43)
[2020-08-25] MEDS: LEVOTHYROXINE 112 MCG TABLET PO SCH (05:55)
[2020-08-25] MEDS: PIPERACILLIN/TAZO/PMX 3.375GM 50 ML IV SCH ×3 (05:55→18:00)
[2020-08-25] MEDS: LACTULOSE 10 GM/15 ML UDC PO SCH ×2 (08:39→19:58)
[2020-08-25] MEDS: ENOXAPARIN 40 MG/0.4 ML SQ SCH (08:40)
[2020-08-25 09:15] LABS: BASOPHILS % (AUTO) 0 % (0-1); EOSINOPHILS % (AUTO) 4 % (1-7); LYMPHOCYTES % (AUTO) 47 % (22-44); MEAN CORPUSCULAR HEMOGLOBIN 30.6 pg (27.0-34.8); MEAN CORPUSCULAR HGB CONC 32.5 g/dL (32.4-35.8); MEAN PLATELET VOLUME 10.3 fL (7.4-10.4); MONOCYTES % (AUTO) 8 % (2-9); NEUTROPHILS % (AUTO) 40 % (42-75); PLATELET COUNT 224 x10^3/uL (130-400); RED BLOOD COUNT 3.99 x10^6/uL (3.82-5.3); RED CELL DISTRIBUTION WIDTH 14.9 % (9.6-15.2)
[2020-08-25 10:12] LABS: MD SCAN
[2020-08-25 10:20] VITALS: BP 116/74
[2020-08-25 12:48] VITALS: BP 134/79
[2020-08-25 13:07] LABS: MICROSCOPIC NOT IND
[2020-08-25 19:58] VITALS: BP 108/71
[2020-08-26] MEDS: PIPERACILLIN/TAZO/PMX 3.375GM 50 ML IV SCH ×4 (00:40→18:00)
[2020-08-26 01:16] VITALS: BP 109/76
[2020-08-26] MEDS: HYDROcodone/APAP 5/325 TABLET PO PRN ×2 (04:51→20:43)
[2020-08-26] MEDS: LEVOTHYROXINE 112 MCG TABLET PO SCH (05:59)
[2020-08-26 07:44] VITALS: BP 111/76
[2020-08-26] MEDS: LACTULOSE 10 GM/15 ML UDC PO SCH ×2 (08:26→20:44)
[2020-08-26] MEDS: ENOXAPARIN 40 MG/0.4 ML SQ SCH (08:26)
[2020-08-26 14:48] VITALS: BP 121/77
[2020-08-26 20:45] VITALS: BP 112/73
[2020-08-27] MEDS: PIPERACILLIN/TAZO/PMX 3.375GM 50 ML IV SCH ×4 (00:03→20:14)
[2020-08-27] MEDS: HYDROcodone/APAP 5/325 TABLET PO PRN ×6 (00:47→21:49)
[2020-08-27 03:27] VITALS: BP 116/69
[2020-08-27] MEDS: LEVOTHYROXINE 112 MCG TABLET PO SCH (05:34)
[2020-08-27] MEDS: LACTULOSE 10 GM/15 ML UDC PO SCH ×3 (09:00→19:40)
[2020-08-27] MEDS: SENNA/DOCUSATE TABLET PO SCH ×3 (09:00→19:40)
[2020-08-27] MEDS: ENOXAPARIN 40 MG/0.4 ML SQ SCH (09:09)
[2020-08-27 10:00] VITALS: BP 123/80
[2020-08-27 12:59] VITALS: BP 104/70
[2020-08-27 21:56] VITALS: BP 119/76
[2020-08-28] MEDS: PIPERACILLIN/TAZO/PMX 3.375GM 50 ML IV SCH ×4 (02:13→21:16)
[2020-08-28] MEDS: HYDROcodone/APAP 5/325 TABLET PO PRN ×6 (02:13→23:33)
[2020-08-28 02:18] VITALS: BP 108/68
[2020-08-28 03:51] LABS: BASOPHILS % (AUTO) 1 % (0-1); EOSINOPHILS % (AUTO) 7 % (1-7); LYMPHOCYTES % (AUTO) 40 % (22-44); MEAN CORPUSCULAR HEMOGLOBIN 30.7 pg (27.0-34.8); MEAN CORPUSCULAR HGB CONC 32.8 g/dL (32.4-35.8); MEAN PLATELET VOLUME 9.9 fL (7.4-10.4); MONOCYTES % (AUTO) 9 % (2-9); NEUTROPHILS % (AUTO) 44 % (42-75); PLATELET COUNT 208 x10^3/uL (130-400); RED BLOOD COUNT 3.96 x10^6/uL (3.82-5.3); RED CELL DISTRIBUTION WIDTH 14.9 % (9.6-15.2)
[2020-08-28 03:59] LABS: ANION GAP 4 mmol/L (5-15); CHLORIDE 107 mmol/L (98-107); CREATININE 0.64 mg/dL (0.55-1.02)
[2020-08-28 04:11] LABS: MD NO
[2020-08-28] MEDS: LEVOTHYROXINE 112 MCG TABLET PO SCH (05:39)
[2020-08-28 08:07] VITALS: BP 114/65
[2020-08-28] MEDS: ENOXAPARIN 40 MG/0.4 ML SQ SCH (08:57)
[2020-08-28] MEDS: SENNA/DOCUSATE TABLET PO SCH ×2 (09:00→21:00)
[2020-08-28] MEDS: LACTULOSE 10 GM/15 ML UDC PO SCH ×2 (09:06→21:00)
[2020-08-28 14:07] VITALS: BP 111/63
[2020-08-28 20:31] VITALS: BP 118/71
[2020-08-29 01:37] VITALS: BP 110/68
[2020-08-29] MEDS: PIPERACILLIN/TAZO/PMX 3.375GM 50 ML IV SCH ×4 (03:46→22:23)
[2020-08-29] MEDS: HYDROcodone/APAP 5/325 TABLET PO PRN ×5 (03:51→22:23)
[2020-08-29] MEDS: LEVOTHYROXINE 112 MCG TABLET PO SCH (05:18)
[2020-08-29 08:14] VITALS: BP 118/80
[2020-08-29] MEDS: ENOXAPARIN 40 MG/0.4 ML SQ SCH (08:32)
[2020-08-29] MEDS: SENNA/DOCUSATE TABLET PO SCH ×2 (08:41→21:00)
[2020-08-29] MEDS: LACTULOSE 10 GM/15 ML UDC PO SCH ×2 (08:41→21:00)
[2020-08-29 13:32] VITALS: BP 99/64
[2020-08-29 20:39] VITALS: BP 102/66
[2020-08-30 01:31] VITALS: BP 97/67
[2020-08-30] MEDS: PIPERACILLIN/TAZO/PMX 3.375GM 50 ML IV SCH (04:50)
[2020-08-30] MEDS: LEVOTHYROXINE 112 MCG TABLET PO SCH (04:50)
[2020-08-30] MEDS: HYDROcodone/APAP 5/325 TABLET PO PRN ×2 (04:51→10:20)
[2020-08-30 08:04] VITALS: BP 109/68
[2020-08-30] MEDS ORDERED: ERTA1VIA4 IV (09:22)
[2020-08-30] MEDS ORDERED: ERTAPENEM 1 GM in SODIUM CHLORIDE 0.9% 50 ML IV SCH (10:00)
[2020-08-30] MEDS: ENOXAPARIN 40 MG/0.4 ML SQ SCH (10:21)
[2020-08-30] MEDS: LACTULOSE 10 GM/15 ML UDC PO SCH (10:24)
[2020-08-30] MEDS: SENNA/DOCUSATE TABLET PO SCH (10:25)
== END 2020-08-30 13:30 | disposition home health service (06) | DRG 872 ==
LOC: ED 21:25 → EDIP 23:40 → 4NE 08-24 01:15 → DCLOUNGE 08-30 13:06
PROVIDERS: ADMIT Family Medicine; ATTEND Hospitalist
PROC: 0T9B70Z Drainage of Bladder with Drainage Device, Via Natural or Artificial Opening (ICD-10-PCS; 2020-08-25)
PROC: 02HV33Z Insertion of Infusion Device into Superior Vena Cava, Percutaneous Approach (ICD-10-PCS; principal; 2020-08-26)
PROC: B5181ZA Fluoroscopy of Superior Vena Cava using Low Osmolar Contrast, Guidance (ICD-10-PCS; 2020-08-26)
PROC: B548ZZA Ultrasonography of Superior Vena Cava, Guidance (ICD-10-PCS; 2020-08-26)
DX: A41.9 Sepsis, unspecified organism (principal); N12 Tubulo-interstitial nephritis, not specified as acute or chronic; Z16.24 Resistance to multiple antibiotics; N17.9 Acute kidney failure, unspecified; E03.9 Hypothyroidism, unspecified; G35 Multiple sclerosis; K59.00 Constipation, unspecified; N31.9 Neuromuscular dysfunction of bladder, unspecified; R33.8 Other retention of urine; Z87.440 Personal history of urinary (tract) infections; B96.1 Klebsiella pneumoniae [K. pneumoniae] as the cause of diseases classified elsewhere; M54.5 Low back pain
CPT/HCPCS: 36415; 36573; 80048; 81003; 83605; 85025; 87040; 96374; 96375; 99285; G0378; J1335; J1644; J1650; J1885; J2543; C1751; J2270; J7030